=== PATIENT | female | born 1980 | race Asian ===

== ENCOUNTER 2019-01-02 17:13 | Emergency (ER) | payer OTHER ==
--- NOTE | 2019-01-02 18:14 | ER Document Report ---
ED Medical Screen (RME) - General Chief Complaint: OB Problem (<20wks) Stated Complaint: BLEEDING Time Seen by Provider: 01/02/19 18:11 TRAVEL OUTSIDE OF THE [place] IN LAST 30 DAYS: No - HPI Notes: 01/02/19 18:13 Patient is a with one previous and approximate 5 to 6 weeks by gestation who presents complaining of bleeding that started today with some mild cramping. She has no other concerns or complaints. She is eating and drinking without difficulties. She is urinating normally and having normal bowel movements. No other significant past medical history. Denies PRO, fever, neck pain, URI, CP, SOB, n/v/d, dysuria, back pain, or rash. I have treated and performed a rapid initial assessment of this patient. A comprehensive ED assessment and evaluation of the patient, analysis of test results and completion of medical decision making process will be conducted by additional ED providers. PHYSICAL EXAMINATION: GENERAL: Well-appearing, well-nourished and in no acute distress. A&Ox4. Answers questions appropriately. LUNGS: Breath sounds clear to auscultation bilaterally and equal. No wheezes rales or rhonchi. HEART: Regular rate and rhythm without murmurs, rubs, gallops. - Related Data Allergies/Adverse Reactions: No Known Allergies Allergy (Verified 01/02/19 17:14) Physical Exam - Vital signs Vitals: Temp Pulse Resp BP Pulse Ox 98.5 F 80 13 116/70 100 01/02/19 17:25 01/02/19 17:25 01/02/19 17:25 01/02/19 17:25 01/02/19 17:25 Course - Vital Signs Vital signs: Temp Pulse Resp BP Pulse Ox 98.5 F 80 13 116/70 100 01/02/19 17:25 01/02/19 17:25 01/02/19 17:25 01/02/19 17:25 01/02/19 17:25
--- NOTE | 2019-01-02 18:53 | RADIOLOGY REPORT (SQ) ---
EXAM DESCRIPTION: U/S OB TRANSVAG W/DOPPLER COMPLETED DATE/TIME: 01/02/2019 6:43 pm REASON FOR STUDY: Preg, bleeding, approx 5-6wks by gestation COMPARISON: None. TECHNIQUE: Transvaginal static and realtime grayscale images acquired of the pelvis. Additional sharonda cted spectral and color Doppler images recorded. All images stored on PACs. bHCG: Not available. CLINICAL DATES: 5 weeks, 0 days LIMITATIONS: None. FINDINGS: No candidate intrauterine gestation identified. UTERUS: No masses. No anomalies. CERVICAL LENGTH: 3.3 cm Closed. RIGHT ADNEXA: Normal ovary with normal vascular flow. No adnexal free fluid. No adnexal masses. LEFT ADNEXA: Normal ovary with normal vascular flow. No adnexal free fluid. No adnexal masses. FREE FLUID: None. OTHER: No other significant finding. IMPRESSION: No candidate intrauterine gestation identified. Early of unknown location. R ecommend ectopic precautions, serial beta HCG, and follow-up ultrasound in 7 to 14 days to ensure con tinued development and viability. Trimester of : First - 0 to 13 weeks. TECHNICAL DOCUMENTATION: JOB ID: [id number] [employer]- All Rights Reserved rev-12/12 Reading location - IP/workstation name: [email or web address]
[2019-01-02 19:40] LABS: ABSOLUTE BASOPHILS # (AUTO) 0.1 10^3/uL (0.0-0.2); ABSOLUTE EOSINOPHILS # (AUTO) 0.2 10^3/uL (0.0-0.6); ABSOLUTE MONOCYTES (AUTO) 0.9 10^3/uL (0.1-1.4); BASOPHILS % (AUTO) 0.8 % (0-2); EOSINOPHILS % (AUTO) 1.5 % (0-6); HEMATOCRIT 40.1 % (36.0-47.0); HEMOGLOBIN 13.6 g/dL (12.0-15.5); LYMPHOCYTES % (AUTO) 16.5 % (13-45); MEAN CORPUSCULAR HEMOGLOBIN 29.2 pg (27.0-33.4); MEAN CORPUSCULAR HGB CONC 33.9 g/dL (32.0-36.0); MEAN CORPUSCULAR VOLUME 86 fl (80-97); MONOCYTES % (AUTO) 7.6 % (3-13); PLATELET COUNT 350 10^3/uL (150-450); RED BLOOD COUNT 4.66 10^6/uL (3.72-5.28); RED CELL DISTRIBUTION WIDTH 12.8 % (11.5-14.0); SEGMENTED NEUTROPHILS % (AUTO) 73.6 % (42-78); TOTAL CELLS COUNTED % (AUTO) 100 %; WHITE BLOOD COUNT 12.2 10^3/uL (4.0-10.5)
[2019-01-02 20:00] LABS: APPEARANCE,URINE TURBID; BILIRUBIN,URINE NEGATIVE (NEGATIVE); COLOR,URINE YELLOW; GLUCOSE, URINE NEGATIVE (NEGATIVE); KETONES,URINE NEGATIVE (NEGATIVE); LEUKOCYTE ESTERASE,URINE SMALL (NEGATIVE); NITRITE,URINE NEGATIVE (NEGATIVE); PROTEIN,URINE 100 mg/dL (NEGATIVE); URINE SPECIFIC GRAVITY 1.023
--- NOTE | 2019-01-02 21:40 | ER Document Report ---
ED General - General Chief Complaint: OB Problem (<20wks) Stated Complaint: BLEEDING Time Seen by Provider: 01/02/19 18:11 Notes: Patient is a with one previous LMP approximately 5 to 6 weeks ago who had a positive test at home 3 days ago who presents due to concerns of vaginal spotting. Patient states that this started while she was shopping, she went to the restroom and noticed that she was having scant amounts of vaginal bleeding. Denies any associated lower abdominal pain. States that she was very alarmed given that she had tested positive for a at home. Has not seen her doctor or had an office confirmation of . Nothing seems to improve or worsen her symptoms. Regards the bleeding is being quite mild. No history of similar symptoms during previous pregnancies. TRAVEL OUTSIDE OF THE [place] IN LAST 30 DAYS: No - Related Data Allergies/Adverse Reactions: No Known Allergies Allergy (Verified 01/02/19 17:14) Past Medical History - General Information source: Patient - Social History Smoking Status: Never Smoker Frequency of alcohol use: None Drug Abuse: None Lives with: Spouse/Significant other Family History: Reviewed & Not Pertinent Review of Systems - Review of Systems Notes: Constitutional: Negative for fever. HENT: Negative for sore throat. Eyes: Negative for visual changes. Cardiovascular: Negative for chest pain. Respiratory: Negative for shortness of breath. Gastrointestinal: Negative for abdominal pain, vomiting or diarrhea. Genitourinary: Negative for dysuria. Positive for vaginal bleeding Musculoskeletal: Negative for back pain. Skin: Negative for rash. Neurological: Negative for headaches, weakness or numbness. 10 point ROS negative except as marked above and in HPI. Physical Exam - Vital signs Vitals: Temp Pulse Resp BP Pulse Ox 98.5 F 80 13 116/70 100 01/02/19 17:25 01/02/19 17:25 01/02/19 17:25 01/02/19 17:25 01/02/19 17:25 Interpretation: Normal Notes: PHYSICAL EXAMINATION: GENERAL: Well-appearing, well-nourished and in no acute distress. HEAD: Atraumatic, normocephalic. EYES: Pupils equal round and reactive to light, extraocular movements intact, sclera anicteric, conjunctiva are normal. ENT: nares patent, oropharynx clear without exudates. Moist mucous membranes. NECK: Normal range of motion, supple without lymphadenopathy LUNGS: Breath sounds clear to auscultation bilaterally and equal. No wheezes rales or rhonchi. HEART: Regular rate and rhythm without murmurs ABDOMEN: Soft, nontender, normoactive bowel sounds. No guarding, no rebound. No masses appreciated. EXTREMITIES: Normal range of motion, no pitting or edema. No cyanosis. NEUROLOGICAL: No focal neurological deficits. Moves all extremities spontaneously and on command. PSYCH: Normal mood, normal affect. SKIN: Warm, Dry, normal turgor, no rashes or lesions noted. Course - Re-evaluation Re-evalutation: 01/02/19 22:00 Patient presents with vaginal bleeding and concerned that she is . P atient's hCG level is undetectable, transvaginal ultrasound unremarkable. The patient has no additional symptoms beyond vaginal bleeding. Her abdominal exam is benign without any focal areas of tenderness, rebound or guarding. Remainder of labs otherwise unremarkable. Patient states that she had a positive test at home several days ago but this appears to have either been a false positive or very early chemical type as her levels are completely undetectable at this time. At this time will discharge with return precautions and follow-up recommendations. Verbal discharge instructions given a the bedside and opportunity for questions given. Medication warnings reviewed. Patient is in agreement with this plan and has verbalized understanding of return precautions and the need for primary care follow-up in the next 24-72 hours. - Vital Signs Vital signs: Temp Pulse Resp BP Pulse Ox 98.3 F 80 18 113/68 100 01/02/19 21:44 01/02/19 21:44 01/02/19 21:44 01/02/19 21:44 01/02/19 21:44 - Laboratory Result Diagrams: 01/02/19 19:21 Laboratory results interpreted by me: 01/02/19 01/02/19 19:00 19:21 WBC 12.2 H Absolute Neutrophils 9.0 H Urine Protein 100 H Urine Blood MODERATE H Urine Urobilinogen 4.0 H Ur Leukocyte Esterase SMALL H - Diagnostic Test Radiology reviewed: Reports reviewed Discharge - Discharge Clinical Impression: Vaginal bleeding, Menstrual periods irregular Condition: Good Disposition: HOME, SELF-CARE Additional Instructions: You are not . Your level is undetectable. You are likely having an irregular period. Please follow-up with your general physician within the next 24 to 48 hours. Return if you begin bleeding through more than 2 pads per hour for more than 2 hours, pass out, have severe abdominal pain, develop a fever greater than 100.4 F, or have any other symptoms that are worrisome to you.
[2019-01-02 21:45] VITALS: BP 113/68
== END 2019-01-02 21:28 | disposition home or self-care (01) ==
LOC: ER 17:13
DX: N93.8 Other specified abnormal uterine and vaginal bleeding (principal); N92.6 Irregular menstruation, unspecified; Z32.02 Encounter for pregnancy test, result negative
CPT/HCPCS: 36415; 76817; 81001; 84702; 85025; 86900; 86901; 93976; 99284

== ENCOUNTER 2019-08-18 13:20 | Emergency (ER) | payer OTHER ==
[2019-08-18 13:25] VITALS: BP 125/71
--- NOTE | 2019-08-18 13:47 | ER Document Report ---
ED Medical Screen (RME) - General Chief Complaint: Leg Pain Stated Complaint: LEG PAIN Time Seen by Provider: 08/18/19 13:41 Mode of Arrival: Ambulatory Information source: Patient Notes: 39-year-old female presented to ED for complaint of pain in her vagina radiating down her right leg. She states that last night she was shivering for about 20 minutes that she could not stop and her had to hold her to keep her still. She denies any fevers she denies any nausea or vomiting. She states she has a normal white discharge. She states she is still having the pain inside of her vagina. She states she has never had pain like this before. She denies use of cigarettes alcohol or illicit drugs. She states she does not have any past medical history. She is alert oriented respirations regular nonlabored speaking in full sentences. She does have pressure when you palpate the pelvic area. Patient is 17 weeks and 5 days I have greeted and performed a rapid initial assessment of this patient. A comprehensive ED assessment and evaluation of the patient, analysis of test results and completion of medical decision making process will be conducted by an additional ED providers. TRAVEL OUTSIDE OF THE [place] IN LAST 30 DAYS: No - Related Data Allergies/Adverse Reactions: No Known Allergies Allergy (Verified 08/18/19 13:29) Physical Exam - Vital signs Vitals: Temp Pulse Resp BP Pulse Ox 98.0 F 100 18 125/71 96 08/18/19 13:24 08/18/19 13:24 08/18/19 13:24 08/18/19 13:24 08/18/19 13:24 Course - Vital Signs Vital signs: Temp Pulse Resp BP Pulse Ox 98.0 F 100 18 125/71 96 08/18/19 13:24 08/18/19 13:24 08/18/19 13:24 08/18/19 13:24 08/18/19 13:24
--- NOTE | 2019-08-18 14:56 | RADIOLOGY REPORT (SQ) ---
EXAM DESCRIPTION: U/S OB 14+ TRNABD 1GES W/O DOP COMPLETED DATE/TIME: 08/18/2019 2:44 pm REASON FOR STUDY: Vaginal pain 17 weeks COMPARISON: None. TECHNIQUE: Static and Dynamic grayscale imaging performed of gravid uterus using transabdominal appr oac. Additional selected color Doppler and spectral images recorded. All stored on PACS. LIMITATIONS: None. FINDINGS: FETUSES SEEN:1 EGA: 17 weeks 4 days. Calculated using BPD,FL,HC,AC documented on images. No discrepancy with clinic al dates. EMILY: 01/22/2020 EFW: 208 grams PERCENTILE: Not applicable. Fetus less than or equal to 20 weeks gestation. LVP: 2.4 cm. PLACENTA: Posterior in location. GRADE: I PRESENTATION: Breech. ANATOMY: HEART RATE: 155 beats per minute. FOUR CHAMBER HEART: Not visualized. THREE VESSEL CORD: Not visualized. CORD INSERTION: Not visualized. KIDNEYS AND BLADDER: Not visualized. STOMACH: Visualized. Appears normal. SPINE: Inadequately visualized. BRAIN AND LATERAL VENTRICLES: Visualized. Appear normal. OTHER: No other significant finding. MATERNAL ADNEXA: Maternal ovaries not visualized. CERVICAL LENGTH: 2.4 cm. Closed. OTHER: No other significant finding. IMPRESSION: LIVING INTRAUTERINE . ESTIMATED GESTATIONAL AGE 17 WEEKS 4 DAYS. NO VISUALIZED ANOMALIES. Trimester of : Second trimester - 13 weeks 1 day to 27 weeks 6 days. TECHNICAL DOCUMENTATION: JOB ID: [id number] [employer]- All Rights Reserved Reading location - IP/workstation name: [email or web address]
--- NOTE | 2019-08-18 15:10 | ER Document Report ---
ED GI/ - General Chief Complaint: Leg Pain Stated Complaint: LEG PAIN Time Seen by Provider: 08/18/19 15:41 Primary Care Provider: Alan Correa CASE MANAGEMENT RN [Provider Group] - Follow up as needed Mode of Arrival: Ambulatory Information source: Patient Notes: Patient presents complaining of a 3-day history of vaginal pain and right groin pain. Patient states she only has the pain when she is standing up and walking. Pain resolves when she is sitting down or laying down. Patient is currently 17 weeks G6, P4. Patient denies any vaginal bleeding or urinary symptoms. Patient does report some vaginal discharge but states that this is normal for her. TRAVEL OUTSIDE OF THE [place] IN LAST 30 DAYS: No - HPI Patient complains to provider of: Vaginal discharge, Vaginal pain Onset: Other - 3 days Timing/Duration: Waxing and waning Quality of pain: Sharp Severity at maximum: Moderate Severity in ED: None Pain Level: 3 Location: Vaginal, Other - Right groin Menstrual period history: Sexual history: Active Associated symptoms: Vaginal discharge. denies: Diarrhea, Dysuria, Fever, Urinary hesitancy, Urinary frequency, Urinary retention, Urinary urgency Exacerbated by: Movement, Walking Relieved by: Supine, Sitting Similar symptoms previously: No Recently seen / treated by doctor: No - Related Data Allergies/Adverse Reactions: No Known Allergies Allergy (Verified 08/18/19 13:29) Home Medications: vitamins, progesterone injections Past Medical History - General Information source: Patient - Social History Smoking Status: Never Smoker Chew tobacco use (# tins/day): No Frequency of alcohol use: None Drug Abuse: None Occupation: [employer] services Lives with: Family Family History: Reviewed & Not Pertinent Patient has suicidal ideation: No Patient has homicidal ideation: No - Medical History Medical History: Negative Surgical Hx: Negative Review of Systems - Review of Systems Constitutional: No symptoms reported. denies: Fever, Recent illness EENT: No symptoms reported Cardiovascular: No symptoms reported Gastrointestinal: No symptoms reported. denies: Abdominal pain, Nausea, Vomiting Genitourinary: No symptoms reported Female Genitourinary: Vaginal discharge, Other - Vaginal pain, right groin pain Musculoskeletal: No symptoms reported. denies: Back pain Skin: No symptoms reported Hematologic/Lymphatic: No symptoms reported Neurological/Psychological: No symptoms reported Physical Exam - Vital signs Vitals: Temp Pulse Resp BP Pulse Ox 98.0 F 100 18 125/71 96 08/18/19 13:24 08/18/19 13:24 08/18/19 13:24 08/18/19 13:24 08/18/19 13:24 - General General appearance: Appears well, Alert In distress: None - HEENT Head: Normocephalic, Atraumatic Eyes: Normal Conjunctiva: Normal - Respiratory Respiratory status: No respiratory distress Chest status: Nontender Breath sounds: Normal. No: Rales, Rhonchi, Stridor, Wheezing Chest palpation: Normal - Cardiovascular Rhythm: Regular. No: Tachycardia Heart sounds: S1 appreciated, S2 appreciated - Abdominal Inspection: Normal Distension: No distension Bowel sounds: Normal Tenderness: Nontender Organomegaly: No organomegaly - Genitourinary External exam: Normal Speculum exam: Cervix closed, Vaginal discharge Vaginal bleeding: None Bimanuel exam: Other - Tenderness with bimanual examination with palpation of the right lateral vaginal wall, no palpable abnormality spelt - Back Back: Normal, Nontender. No: CVA tenderness - Extremities General upper extremity: Normal inspection, Normal strength General lower extremity: Normal inspection, Normal strength - Neurological Neuro grossly intact: Yes Cognition: Normal Orientation: AAOx4 [place] Coma Scale Eye Opening: Spontaneous [place] Coma Scale Verbal: Oriented [place] Coma Scale Motor: Obeys Commands Lamine Coma Scale Total: 15 - Psychological Associated symptoms: Normal affect, Normal mood - Skin Skin Temperature: Warm Skin Moisture: Dry Skin Color: Normal Course - Re-evaluation Re-evalutation: 08/18/19 17:40 Patient with right inguinal tenderness, no evidence for hernia, no acute findings noted on ultrasound. Patient with mild tenderness to right vaginal wall although no obvious source for the tenderness on pelvic examination. Consulted with Dr. Don regarding patient presentation and diagnostic evaluation. No additional testing advised at this time. Agrees with plan for outpatient follow-up with CASE MANAGEMENT RN. - Vital Signs Vital signs: Temp Pulse Resp BP Pulse Ox 98.0 F 100 18 125/71 96 08/18/19 13:24 08/18/19 13:24 08/18/19 13:24 08/18/19 13:24 08/18/19 13:24 - Laboratory Result Diagrams: 08/18/19 15:31 08/18/19 15:31 Laboratory results interpreted by me: 08/18/19 08/18/19 08/18/19 13:55 15:31 15:31 WBC 13.4 H Lymph % (Auto) 11.7 L Absolute Neuts (auto) 10.7 H Seg Neutrophils % 80.0 H Sodium 136.7 L Creatinine 0.41 L Beta HCG, Quant 55333.00 H Urine Glucose (UA) >=500 H Urine Ketones TRACE H Urine Urobilinogen 4.0 H Labs- Entire Visit 08/18/19 08/18/19 08/18/19 13:55 15:31 15:31 WBC 13.4 H RBC 4.40 Hgb 13.1 Hct 37.9 MCV 86 MCH 29.8 MCHC 34.7 RDW 13.6 Plt Count 298 Lymph % (Auto) 11.7 L [place] % (Auto) 6.2 Eos % (Auto) 1.5 Baso % (Auto) 0.6 Absolute Neuts (auto) 10.7 H Absolute Lymphs (auto) 1.6 Absolute Monos (auto) 0.8 Absolute Eos (auto) 0.2 Absolute Basos (auto) 0.1 Seg Neutrophils % 80.0 H Sodium 136.7 L Potassium 3.6 Chloride 104 Carbon Dioxide 23 Anion Gap 10 BUN 8 Creatinine 0.41 L Est GFR ( Amer) > 60 Est GFR (MDRD) Non-Af > 60 Glucose 108 Calcium 9.8 Total Bilirubin 0.2 Direct Bilirubin 0.2 Neonat Total Bilirubin Not Reportable Neonat Direct Bilirubin Not Reportable Neonat Indirect Bili Not Reportable AST 35 ALT 82 Alkaline Phosphatase 77 Total Protein 6.8 Albumin 3.5 Beta HCG, Quant 40334.00 H Total Beta HCG POSITIVE Urine Color YELLOW Urine Appearance CLOUDY Urine pH 6.0 Ur Specific [place] 1.018 Urine Protein NEGATIVE Urine Glucose (UA) >=500 H Urine Ketones TRACE H Urine Blood NEGATIVE Urine Nitrite (Reflex) NEGATIVE Urine Bilirubin NEGATIVE Urine Urobilinogen 4.0 H Leukocyte Esterase Rfl NEGATIVE Urine RBC (Auto) 1 Urine Bacteria (Auto) TRACE Urine WBC (Reflex) 3 Squamous Epi Cells Auto 6 Calcium Oxalate Cr Auto MANY Urine Mucus (Auto) OCC Urine Yeast (Budding) PRESENT Urine Ascorbic Acid NEGATIVE Epi Cells (Wet Prep) Bacteria (Wet Prep) Trichomonas (Wet Prep) Vaginal WBC Vaginal Yeast 08/18/19 15:53 WBC RBC Hgb Hct MCV MCH MCHC RDW Plt Count Lymph % (Auto) [place] % (Auto) Eos % (Auto) Baso % (Auto) Absolute Neuts (auto) Absolute Lymphs (auto) Absolute Monos (auto) Absolute Eos (auto) Absolute Basos (auto) Seg Neutrophils % Sodium Potassium Chloride Carbon Dioxide Anion Gap BUN Creatinine Est GFR ( Amer) Est GFR (MDRD) Non-Af Glucose Calcium Total Bilirubin Direct Bilirubin Neonat Total Bilirubin Neonat Direct Bilirubin Neonat Indirect Bili AST ALT Alkaline Phosphatase Total Protein Albumin Beta HCG, Quant Total Beta HCG Urine Color Urine Appearance Urine pH Ur Specific [place] Urine Protein Urine Glucose (UA) Urine Ketones Urine Blood Urine Nitrite (Reflex) Urine Bilirubin Urine Urobilinogen Leukocyte Esterase Rfl Urine RBC (Auto) Urine Bacteria (Auto) Urine WBC (Reflex) Squamous Epi Cells Auto Calcium Oxalate Cr Auto Urine Mucus (Auto) Urine Yeast (Budding) Urine Ascorbic Acid Epi Cells (Wet Prep) 3+ EPITHELIALS SEEN Bacteria (Wet Prep) 4+ BACTERIA SEEN Trichomonas (Wet Prep) NO TRICHOMONAS SEEN Vaginal WBC 1+ WBCS SEEN Vaginal Yeast NO YEAST SEEN - Diagnostic Test Radiology reviewed: Reports reviewed Discharge - Discharge Clinical Impression: Right inguinal pain, Vaginal pain, Bacterial vaginosis Condition: Stable Disposition: HOME, SELF-CARE Instructions: Metronidazole ([facility]), Pelvic Pain in and Round Ligament Pain ([facility]), Vaginosis, Bacterial ([facility]) Additional Instructions: Return immediately for any new or worsening symptoms Followup with your primary care provider, call tomorrow to make a followup appointment Follow-up with your CASE MANAGEMENT RN for recheck, call tomorrow for an appointment Prescriptions: Metronidazole [Flagyl 500 mg Tablet] 500 mg PO BID #14 tablet Forms: Return to Work Referrals: Alan Correa CASE MANAGEMENT RN [Provider Group] - Follow up as needed
[2019-08-18 15:45] LABS: ABSOLUTE BASOPHILS # (AUTO) 0.1 10^3/uL (0.0-0.2); ABSOLUTE EOSINOPHILS # (AUTO) 0.2 10^3/uL (0.0-0.6); ABSOLUTE LYMPHOCYTES (AUTO) 1.6 10^3/uL (0.5-4.7); ABSOLUTE MONOCYTES (AUTO) 0.8 10^3/uL (0.1-1.4); ABSOLUTE NEUT (AUTO) 10.7 10^3/uL (1.7-8.2); BASOPHILS % (AUTO) 0.6 % (0-2); EOSINOPHILS % (AUTO) 1.5 % (0-6); HEMATOCRIT 37.9 % (36.0-47.0); HEMOGLOBIN 13.1 g/dL (12.0-15.5); LYMPHOCYTES % (AUTO) 11.7 % (13-45); MEAN CORPUSCULAR HEMOGLOBIN 29.8 pg (27.0-33.4); MEAN CORPUSCULAR HGB CONC 34.7 g/dL (32.0-36.0); MEAN CORPUSCULAR VOLUME 86 fl (80-97); MONOCYTES % (AUTO) 6.2 % (3-13); PLATELET COUNT 298 10^3/uL (150-450); RED CELL DISTRIBUTION WIDTH 13.6 % (11.5-14.0); TOTAL CELLS COUNTED % (AUTO) 100 %; WHITE BLOOD COUNT 13.4 10^3/uL (4.0-10.5)
[2019-08-18 16:08] LABS: BACTERIA (WET MOUNT) 4+ BACTERIA SEEN; EPITHELIALS (WET MOUNT) 3+ EPITHELIALS SEEN; T.VAGINALIS (WET MOUNT) NO TRICHOMONAS SEEN; WBCS (WET MOUNT) 1+ WBCS SEEN; YEAST (WET MOUNT) NO YEAST SEEN
[2019-08-18 16:11] LABS: APPEARANCE,URINE CLOUDY; BILIRUBIN,URINE NEGATIVE (NEGATIVE); CALCIUM OXALATE CRYSTALS,URINE MANY /HPF; COLOR,URINE YELLOW; GLUCOSE, URINE >=500 mg/dL (NEGATIVE); KETONES,URINE TRACE mg/dL (NEGATIVE); PROTEIN,URINE NEGATIVE (NEGATIVE); URINE SPECIFIC GRAVITY 1.018
[2019-08-18 16:13] LABS: ALBUMIN 3.5 g/dL (3.5-5.0); ALKALINE PHOSPHATASE 77 U/L (38-126); ANION GAP 10 (5-19); ASPARTATE AMINO TRANSFERASE 35 U/L (14-36); BILIRUBIN,DIRECT 0.2 mg/dL (0.0-0.4); BILIRUBIN,TOTAL 0.2 mg/dL (0.2-1.3); BLOOD UREA NITROGEN 8 mg/dL (7-20); CALCIUM 9.8 mg/dL (8.4-10.2); CARBON DIOXIDE 23 mmol/L (22-30); CHLORIDE 104 mmol/L (98-107); GLUCOSE 108 mg/dL (75-110); POTASSIUM 3.6 mmol/L (3.6-5.0); TOTAL PROTEIN 6.8 g/dL (6.3-8.2)
[2019-08-18] MEDS ORDERED: METRONIDAZOLE 500 MG TABLET PO ONE (17:35)
[2019-08-18 17:38] LABS: CHLAM PCR NOT DETECTED (NOT DETECT)
== END 2019-08-18 18:14 | disposition home or self-care (01) ==
LOC: ER 13:20
DX: O23.592 Infection of other part of genital tract in pregnancy, second trimester (principal); B96.89 Other specified bacterial agents as the cause of diseases classified elsewhere; Z3A.17 17 weeks gestation of pregnancy; Z79.899 Other long term (current) drug therapy
CPT/HCPCS: 36415; 76805; 80053; 81001; 84702; 85025; 87210; 87491; 87591; 99284